=== PATIENT | male | born 1995 | race Caucasian/White ===

== ENCOUNTER 2024-04-27 11:42 | Emergency (ER) | payer OTHER ==
[~2024-04-27] VITALS: Ht 165.1 cm; Wt 68.1 kg
[2024-04-27 11:53] VITALS: BP 116/71; PULSE 83; RESP 22; TEMP 98; O2SAT 98
[2024-04-27 14:21] VITALS: PULSE 60; TEMP 97.4; O2SAT 98
== END 2024-04-27 14:20 | disposition home or self-care (01) ==
LOC: MED 11:42
DX: Z77.098 Contact with and (suspected) exposure to other hazardous, chiefly nonmedicinal, chemicals (principal)
CPT/HCPCS: 99281